=== PATIENT | male | born 1980 | race Two or more races ===

== ENCOUNTER 2017-06-11 10:01 | Emergency (ER) | payer OTHER ==
--- NOTE | 2017-06-11 11:35 | EDPHY ---
H & P Time Seen by Provider: 06/11/17 10:39 HPI/ROS: CHIEF COMPLAINT: Left wrist injury, left knee injury HISTORY OF PRESENT ILLNESS: 36-year-old male presents to the emergency department with injury to his left wrist and knee. Patient was up on a ladder which then slid down and somehow he twisted his left wrist and fell on his left knee. He did not hit his head or lose consciousness. Denies neck or back pain. Denies headache. Denies chest pain or difficulty breathing. Denies paresthesias in his upper lower extremities. Denies abdominal pain or vomiting. The patient is right-hand dominant. He has pain in his left wrist especially with movement. He also sustained abrasions to his left elbow. He believes his tetanus shot is current. REVIEW OF SYSTEMS: Constitutional: No fever, no chills. Eyes: No double or blurry vision. ENT: No sore throat. Respiratory: No cough, no shortness of breath. Cardiac: No chest pain. Gastrointestinal: No abdominal pain, vomiting or diarrhea. Genitourinary: No dysuria. Musculoskeletal: Wrist injury. No neck or back pain. Skin: Abrasions. No rashes. Neurological: No headache. Past Medical/Surgical History: Negative Social History: and lives in [place]. Works as a size painter. Smoking Status: Never smoked Physical Exam: General Appearance: Alert, no distress. No visible signs of trauma to his head. He is mentating normally and answering questions appropriately. Eyes: Pupils equal and round. Extraocular motions are all intact. ENT: Mouth: Mucous membranes moist. Respiratory: No wheezing, rhonchi, or rales, lungs are clear to auscultation. Cardiovascular: Regular rate and rhythm. Gastrointestinal: Abdomen is soft and nontender, no masses, no rebound or guarding, bowel sounds normal. Neurological: Alert and oriented x 3, cranial nerves II through XII grossly intact Skin: Superficial abrasion to the anterior aspect of his left knee. Warm and dry, no rashes. Musculoskeletal: Nontender to palpate along the cervical, thoracic or lumbar spine. Neck is supple. Extremities: Tenderness with palpation over the left distal radius. He has pain with full supination. He is able to flex, extend, radial and ulnar deviate. No effusion noted to the left knee. He does have superficial abrasion to the anterior aspect of the left knee. Normal gait. Full range of motion of the left knee. Psychiatric: Patient is oriented X 3, there is no agitation. Constitutional: Initial Vital Signs Temperature (C) 37.0 C 06/11/17 10:08 Heart Rate 88 06/11/17 10:08 Respiratory Rate 16 06/11/17 10:08 Blood Pressure 144/104 H 06/11/17 10:08 O2 Sat (%) 98 06/11/17 10:08 O2 Delivery Mode Room Air Allergies/Adverse Reactions: No Known Allergies Allergy (Verified 06/11/17 10:12) Home Medications: Medication Instructions Recorded NK [No Known Home Meds] 03/03/16 Medical Decision Making - Diagnostics Imaging Results: Imaging Impressions Knee X-Ray 06/11/17 10:24 Impression: Left knee joint effusion, otherwise negative. No fracture identified. Wrist X-Ray 06/11/17 10:24 Impression: Acute avulsion fracture of the dorsal cortex of the distal left radius. Imaging: I viewed and interpreted images myself Procedures: Patient was placed in Ortho Glass thumb spica splint and examined post application in good placement with normal SKEIN WINDER. ED Course/Re-evaluation: 36-year-old male presents to the emergency department with left wrist injury. X -rays reveal avulsion fracture distal radius. He was placed in Ortho Glass thumb spica splint. X-rays of the left knee reveal no fractures. His abrasions were thoroughly cleansed and dressed. Differential Diagnosis: Including but not limited to fracture, dislocation, contusion, sprain Departure - Departure Disposition: Home, Routine, Self-Care Clinical Impression: Abrasion, left knee, initial encounter Fracture of left distal radius Qualifiers: Encounter type: initial encounter Fracture type: closed Fracture morphology: other fracture Qualified Code(s): S52.592A - Other fractures of lower end of left radius, initial encounter for closed fracture Contusion of left knee Qualifiers: Encounter type: initial encounter Qualified Code(s): S80.02XA - Contusion of left knee, initial encounter Condition: Good Instructions: Wrist Fracture in Adults (ED), Contusion in Adults (ED), Abrasion (ED), Knee Pain (ED) Additional Instructions: Keep splint on until follow-up with orthopedic surgeon. Ibuprofen 600 mg every 8 hours as needed for pain. Keep the abrasion clean on your left knee. Return if you notices any signs or symptoms of infection. Follow up with orthopedic surgeon this week to recheck. Referrals: Екатерина Queen MD [Medical Doctor] - 2-3 days, call for appt. (Orthopedic hand surgeon on-call)
[2017-06-11 11:48] VITALS: BP 130/94; PULSE 71; RESP 18; TEMP 98.6; O2SAT 94
== END 2017-06-11 11:47 | disposition home or self-care (01) ==
PROC: 2W3DX1Z Immobilization of Left Lower Arm using Splint (ICD-10-PCS; principal; 2017-06-11)
DX: S52.592A Other fractures of lower end of left radius, initial encounter for closed fracture (principal); S80.212A Abrasion, left knee, initial encounter; S80.02XA Contusion of left knee, initial encounter; W11.XXXA Fall on and from ladder, initial encounter

== ENCOUNTER → 2017-06-13 | Outpatient (CLI) | payer OTHER | LOC: BRMIMAGING 14:19 | PROVIDERS: ATTEND Internal Medicine | DX: S52.572D Other intraarticular fracture of lower end of left radius, subsequent encounter for closed fracture with routine healing (principal) | CPT/HCPCS: 73110-PO ==